=== PATIENT | male | born 1990 | race Caucasian/White ===

== ENCOUNTER 2019-07-03 17:02 | Emergency (ER) | payer OTHER ==
[~2019-07-03] VITALS: Ht 170.2 cm; Wt 72.6 kg
--- NOTE | 2019-07-03 17:57 | NUR ---
pt walked into emergency room for abscess drainage to moiz pt alert woth orientation x 4 accompanied by firend
[2019-07-03 19:11] LABS: BASOPHILS % (AUTO) 0.6 % (0.0-2.0); EOSINOPHILS % (AUTO) 3.5 % (0.0-6.0); HEMATOCRIT 43 % (39-51); HEMOGLOBIN 14.3 g/dL (13.5-17.5); LYMPHOCYTES # (AUTO) 1.6 /CMM (0.8-4.8); MEAN CORPUSCULAR HGB CONC 34 g/dl (31.0-36.0); MEAN CORPUSCULAR VOLUME 85 fL (80-96); MONOCYTES # (AUTO) 0.6 /CMM (0.1-1.30); NEUTROPHILS # (AUTO) 4.7 /CMM (1.8-8.9); NEUTROPHILS % (AUTO) 64.9 % (43.0-81.0); PLATELET COUNT (AUTO) 218 /CMM (150-450); RED BLOOD CELL COUNT(AUTO) 5.04 MIL/uL (4.5-6.0); WHITE BLOOD COUNT (AUTO) 7.2 K/uL (4.3-11.0)
[2019-07-03 19:20] LABS: CALCIUM, SERUM 9.1 mg/dL (8.5-10.1); CREATININE 0.9 mg/dL (0.6-1.3); POTASSIUM 3.6 mmol/L (3.5-5.1)
[2019-07-03 19:26] LABS: ALBUMIN 3.9 g/dL (3.4-5.0); BILIRUBIN,DIRECT 0.1 mg/dL (0.0-0.2); BILIRUBIN,TOTAL 0.4 mg/dL (0.2-1.0); TOTAL PROTEIN, SERUM 7.3 g/dL (6.4-8.2)
--- NOTE | 2019-07-03 19:53 | NUR ---
pt to ct via caterina
[2019-07-03] MEDS ORDERED: IV NS 0.9% 250 ML IV ONE (20:00)
[2019-07-03] MEDS ORDERED: CT SWABBABLE VALVE TRANS SET 1 EA INFUS.SET MC ONE (20:00)
[2019-07-03] MEDS ORDERED: IOHEXOL-300 100 ML VIAL IV ONE (20:00)
[2019-07-03 22:10] VITALS: BP 124/88
--- NOTE | 2019-07-03 22:10 | NUR ---
pt ok to discharge per Zoey ALVARADO. IV removed. Catheter intact and site benign. Pressure and 4x4 applied to site. No bleeding noted.Patient discharged to home in stable condition. Written and verbal after care instructions given. Patient verbalizes understanding of instruction.Patient is awake and alert to self, day, and place. pt ambulatory with a steady gait
== END 2019-07-03 22:11 | disposition home or self-care (01) ==
LOC: ER 17:06
DX: K61.0 Anal abscess (principal)
CPT/HCPCS: 36415; 72194; 80048; 80076; 85025; 99284; J7050; Q9967